=== PATIENT | female | born 1955 | race Caucasian/White ===

== ENCOUNTER 2017-05-30 18:00 | Emergency (ER) | payer OTHER ==
[~2017-05-30] VITALS: Ht 180.3 cm; Wt 92.5 kg
[2017-05-30] MEDS ORDERED: Omeprazole20 M1 PO (18:18)
[2017-05-30] MEDS ORDERED: RYTHMOL PO (18:19)
[2017-05-30] MEDS ORDERED: IBUP600 PO (19:39)
== END 2017-05-30 19:44 | disposition home or self-care (01) ==
LOC: ER 18:00
DX: S02.2XXA Fracture of nasal bones, initial encounter for closed fracture (principal); S01.21XA Laceration without foreign body of nose, initial encounter; Z88.5 Allergy status to narcotic agent; W10.9XXA Fall (on) (from) unspecified stairs and steps, initial encounter
CPT/HCPCS: 12011; 70486; 90471; 90714; 99284

== ENCOUNTER → 2018-05-29 | Outpatient (CLI) | payer OTHER ==
[~2018-05-29] MED LIST: IBUP600 PO; Omeprazole20 M1 PO; RYTHMOL PO
== END | disposition home or self-care (01) ==
LOC: LAB SHORT 12:46 → PLD 12:46
DX: R93.89 Abnormal findings on diagnostic imaging of other specified body structures (principal)
CPT/HCPCS: 88305

== ENCOUNTER 2018-07-12 06:05 | Day surgery (SDC) | payer OTHER ==
[~2018-07-12] VITALS: Ht 177.8 cm; Wt 91.2 kg
[~2018-07-12 06:05] MED LIST changes: +ALLER-TEC PO; +ASPI81CH PO; +CALCIUM PO; +CHOL10002 PO; +CITA20 PO; +Estrace Vagin42.5 GM VAG; +FISH OIL PO; +FLAX SEED OIL1000 MG PO; +Lipitor20 MG PO; +MAGNESIUM PO; +MILK THISTLE PO; +OMEPRAZOLE20 MG PO; +PROPAFENONE HC PO; +TRAZ50 PO
--- NOTE | 2018-07-12 06:35 | NUR ---
Ambulatory in Day Surgery History, Chart, Medications and Allergies reviewed before start of procedure. Lungs clear T/O to Auscultation. Pre-Op teaching done. Pt verbalizes understanding.
--- NOTE | 2018-07-12 18:34 | NUR ---
PT HAS BEEN STABLE THIS SHIFT. UP TO AMBULATE HALLWAYS OFTEN. PAIN MANAGED WITH 1/2 NORCO PRN. PT VINCENT DRAINING WELL, GREEN/BLUE URINE, TO BE DC'D IN THE AM ALONG WITH VAGINAL PACKING. PT HAS HAD SMALL AMT KIMBERLY BLEEDING. IV INFILTRATED THIS EVENING, PT REQUEST TO NOT HAVE RESTART. ENCOURAGING PO FLUIDS, PT HAS BEEN DRINKING VERY WELL AND KERRIE REG DIET. STERI STRIPS WITH SMALL AMT OOZING IN UMBILICAL INCISION. MULTIPLE FAMILY MEMBERS IN ROOM TO VISIT PATIENT. USES CALL LIGHT APPROPRIATELY NEEDED.
--- NOTE | 2018-07-12 21:45 | NUR ---
AMBULATED IN HALLWAYS WITH SPOUSE, TOELRATED WELL. STATES THAT SHE IS READY FOR HER SLEEPING PILL. TRAZADONE PROVIDED PER MD ORDERS. SAFETY MEASURES IN PLACE. WILL CONTINUNE TO MONITOR.
--- NOTE | 2018-07-13 04:00 | NUR ---
VINCENT CATH AND VAGINAL PACKING REMOVED PER MD ORDER. PERICARE PERFORMED AFTER, TOLERATED WELL. DENIES FURTHER NEEDS AT THIS TIME. SAFETY MEASURES IN PLACE. WILL CONTINUE TO MONITOR.
[2018-07-13 04:47] LABS: BASOPHILS ABSOLUTE AUTO 0.02 K/mm3 (0.00-0.23); BASOPHILS PERCENT AUTO 0 % (0-2); EOSINOPHILS ABSOLUTE AUTO 0.15 K/mm3 (0.00-0.68); EOSINOPHILS PERCENT AUTO 1 % (0-6); Hemoglobin 11.5 g/dL (11.5-16.0); IMMATURE GRAN ABSOLUTE AUTO 0.06 K/mm3 (0.00-0.10); IMMATURE GRAN PERCENT AUTO 1 % (0-1); LYMPHOCYTES ABSOLUTE AUTO 1.69 K/mm3 (0.84-5.20); LYMPHOCYTES PERCENT AUTO 13 % (21-46); MONOCYTES ABSOLUTE AUTO 0.72 K/mm3 (0.16-1.47); MONOCYTES PERCENT AUTO 6 % (4-13); Mean Corpuscular HGB Conc 31.9 g/dL (31.5-36.5); Mean Corpuscular Volume 94 fL (80-100); Mean Platelet Volume 9.7 fL (9.1-12.4); NEUTROPHILS ABSOLUTE AUTO 9.99 K/mm3 (1.96-9.15); NEUTROPHILS PERCENT AUTO 79 % (41-73); Platelet Count 272 K/mm3 (150-400); RDW Coefficient Variation 13.3 % (11.7-14.2); RDW Standard Deviation 45.4 fL (35.1-46.3); Red Blood Cell Count 3.83 M/mm3 (3.80-5.20); White Blood Cell Count 12.63 K/mm3 (4.00-11.30)
--- NOTE | 2018-07-13 06:25 | NUR ---
LYING IN SEMI FOWLERS WITH EYES OPEN WHILE WATCHING TV AND PLAYING ON [employer]. NO FURTHER CHANGES SINCE START OF SHIFT. SAFETY MEASURES IN PLACE. WILL GIVE HAND OFF TO ONCOMING SHIFT USING SBAR.
[2018-07-13] MEDS ORDERED: Norco 5-325 Ta1 EACH PO (10:15)
[2018-07-13] MEDS ORDERED: IBUP800 PO (10:16)
--- NOTE | 2018-07-13 10:39 | NUR ---
DISCHARGE PT EDUCATED ON AND RECEIVED PRINTED DC INSTRUCTIONS. PT VERB AN UNDERSTANDING. HARD RX FOR VOCODIN GIVEN TO PT. ALL PERSONAL BELONGINGS SENT HOME WITH PT. PT VOIDING SPONTANEOUSLY. IV DC'D. PT AMBULATED OUT WITH AT SIDE. PT DISCHARGED HOME.
== END 2018-07-13 10:38 | disposition home or self-care (01) ==
LOC: ORSCMMR 06:05 → ORD 07:30 → ORSCMMR 12:17 → SURS 12:17 → ORSCMMR 07-13 10:38
PROVIDERS: Obstetrics & Gynecology
PROC: 0UT2FZZ Resection of Bilateral Ovaries, Via Natural or Artificial Opening With Percutaneous Endoscopic Assistance (ICD-10-PCS; principal; 2018-07-12 07:30)
PROC: 0JQC0ZZ Repair Pelvic Region Subcutaneous Tissue and Fascia, Open Approach (ICD-10-PCS; principal; 2018-07-12 07:30)
PROC: 0UT7FZZ Resection of Bilateral Fallopian Tubes, Via Natural or Artificial Opening With Percutaneous Endoscopic Assistance (ICD-10-PCS; principal; 2018-07-12 07:30)
PROC: 0UT9FZZ Resection of Uterus, Via Natural or Artificial Opening With Percutaneous Endoscopic Assistance (ICD-10-PCS; principal; 2018-07-12 07:30)
DX: N95.0 Postmenopausal bleeding (principal); D25.9 Leiomyoma of uterus, unspecified; D27.1 Benign neoplasm of left ovary; D27.0 Benign neoplasm of right ovary; N81.10 Cystocele, unspecified; I48.91 Unspecified atrial fibrillation; Z79.899 Other long term (current) drug therapy
CPT/HCPCS: 36415; 85025; 88307; A9270-GY; J0461; J0690; J1100; J1885; J2250; J2405; J2704; J2710; J3010; J7120; Q9968

== ENCOUNTER 2021-09-09 09:17 | Emergency (ER) | payer OTHER ==
[~2021-09-09] VITALS: Ht 180.3 cm; Wt 90.7 kg
[~2021-09-09 09:17] MED LIST changes: +IBUP800 PO; +Norco 5-325 Ta1 EACH PO
[2021-09-09] MEDS ORDERED: CEPH500 PO (10:35)
== END 2021-09-09 11:04 | disposition home or self-care (01) ==
LOC: ER 09:17
DX: L03.116 Cellulitis of left lower limb (principal); L03.115 Cellulitis of right lower limb; J44.9 Chronic obstructive pulmonary disease, unspecified; Z87.891 Personal history of nicotine dependence; Z88.5 Allergy status to narcotic agent; Z79.899 Other long term (current) drug therapy; Z79.82 Long term (current) use of aspirin; Z98.890 Other specified postprocedural states
CPT/HCPCS: 99283

== ENCOUNTER 2021-09-11 08:55 | Emergency (ER) | payer OTHER ==
[~2021-09-11] VITALS: Ht 180.3 cm; Wt 89.8 kg
[~2021-09-11 08:55] MED LIST changes: +CEPH500 PO
[2021-09-11] MEDS ORDERED: Prednisone20 MG PO (10:39)
== END 2021-09-11 11:02 | disposition home or self-care (01) ==
LOC: ER 08:55
DX: T50.905A Adverse effect of unspecified drugs, medicaments and biological substances, initial encounter (principal); R05.3 Chronic cough; J44.9 Chronic obstructive pulmonary disease, unspecified; Z98.890 Other specified postprocedural states; Z87.891 Personal history of nicotine dependence; Z88.5 Allergy status to narcotic agent; Z79.899 Other long term (current) drug therapy; Z79.82 Long term (current) use of aspirin; Y92.9 Unspecified place or not applicable
CPT/HCPCS: A9270; J7512

== ENCOUNTER 2021-09-17 10:06 | Emergency (ER) | payer OTHER ==
[~2021-09-17] VITALS: Ht 180.3 cm; Wt 89.8 kg
[~2021-09-17 10:06] MED LIST changes: +Prednisone20 MG PO
[2021-09-17] MEDS ORDERED: Prednisone20 MG PO (10:45)
== END 2021-09-17 11:20 | disposition home or self-care (01) ==
LOC: ER 10:06
DX: L50.9 Urticaria, unspecified (principal); J44.9 Chronic obstructive pulmonary disease, unspecified; Z88.5 Allergy status to narcotic agent; Z91.09 Other allergy status, other than to drugs and biological substances; Z79.899 Other long term (current) drug therapy; Z79.82 Long term (current) use of aspirin; Z87.891 Personal history of nicotine dependence
CPT/HCPCS: 99283

== ENCOUNTER 2022-03-14 21:53 | Observation (INO) | payer OTHER ==
[~2022-03-14] VITALS: Ht 180.3 cm; Wt 87.1 kg
[~2022-03-14 21:53] MED LIST changes: +OMEP20ER PO; -OMEPRAZOLE20 MG PO
[2022-03-14 23:09] LABS: Influenza A, PCR NEGATIVE (NEGATIVE); Influenza B, PCR NEGATIVE (NEGATIVE); SARS-Cov-2 (COVID-19) PCR, MMC NEGATIVE (NEGATIVE)
[2022-03-14 23:52] LABS: Resp Syncytial Virus, PCR POSITIVE (NEGATIVE)
[2022-03-15 00:15] LABS: BASOPHILS ABSOLUTE AUTO 0.06 K/mm3 (0.00-0.23); BASOPHILS PERCENT AUTO 1 % (0-2); EOSINOPHILS ABSOLUTE AUTO 0.26 K/mm3 (0.00-0.68); EOSINOPHILS PERCENT AUTO 3 % (0-6); Hematocrit 38.6 % (33.0-51.0); Hemoglobin 12.9 g/dL (11.5-16.0); IMMATURE GRAN ABSOLUTE AUTO 0.04 K/mm3 (0.00-0.10); IMMATURE GRAN PERCENT AUTO 0 % (0-1); LYMPHOCYTES ABSOLUTE AUTO 0.89 K/mm3 (0.84-5.20); LYMPHOCYTES PERCENT AUTO 10 % (21-46); MONOCYTES ABSOLUTE AUTO 1.02 K/mm3 (0.16-1.47); MONOCYTES PERCENT AUTO 11 % (4-13); Mean Corpuscular HGB 30.1 pg (26.0-34.0); Mean Corpuscular HGB Conc 33.4 g/dL (31.5-36.5); Mean Corpuscular Volume 90 fL (80-100); Mean Platelet Volume 9.7 fL (9.1-12.4); NEUTROPHILS ABSOLUTE AUTO 6.97 K/mm3 (1.96-9.15); NEUTROPHILS PERCENT AUTO 76 % (41-73); Platelet Count 252 K/mm3 (150-400); RDW Coefficient Variation 13.2 % (11.7-14.2); RDW Standard Deviation 43.8 fL (35.1-46.3); Red Blood Cell Count 4.28 M/mm3 (3.80-5.20); White Blood Cell Count 9.24 K/mm3 (4.00-11.30)
[2022-03-15 00:33] LABS: Albumin, Blood 3.5 g/dL (3.4-5.0); Albumin/Globulin Ratio 0.9 (0.8-1.8); Bilirubin, Total 0.4 mg/dL (0.1-1.0); Bun/Creatinine Ratio 15.7 (12.0-20.0); Calcium, Blood 8.5 mg/dL (8.5-10.1); Creatinine, Blood 1.08 mg/dL (0.40-1.00); Globulin, Blood 4.1 g/dL (2.2-4.0); Potassium, Blood 3.5 mmol/L (3.5-5.5); Total Protein, Blood 7.6 g/dL (6.4-8.2)
[2022-03-15] MEDS ORDERED: BENADRYL25 MG PO (03:57)
[2022-03-15] MEDS ORDERED: MONT10T PO (03:58)
[2022-03-15 04:27] LABS: BASOPHILS ABSOLUTE AUTO 0.04 K/mm3 (0.00-0.23); BASOPHILS PERCENT AUTO 0 % (0-2); EOSINOPHILS ABSOLUTE AUTO 0.02 K/mm3 (0.00-0.68); EOSINOPHILS PERCENT AUTO 0 % (0-6); Hematocrit 38.7 % (33.0-51.0); IMMATURE GRAN ABSOLUTE AUTO 0.04 K/mm3 (0.00-0.10); IMMATURE GRAN PERCENT AUTO 0 % (0-1); LYMPHOCYTES ABSOLUTE AUTO 0.42 K/mm3 (0.84-5.20); LYMPHOCYTES PERCENT AUTO 4 % (21-46); MONOCYTES ABSOLUTE AUTO 0.12 K/mm3 (0.16-1.47); MONOCYTES PERCENT AUTO 1 % (4-13); Mean Corpuscular HGB Conc 33.6 g/dL (31.5-36.5); Mean Corpuscular Volume 89 fL (80-100); Mean Platelet Volume 9.9 fL (9.1-12.4); NEUTROPHILS ABSOLUTE AUTO 8.84 K/mm3 (1.96-9.15); NEUTROPHILS PERCENT AUTO 93 % (41-73); Platelet Count 256 K/mm3 (150-400); RDW Coefficient Variation 13.3 % (11.7-14.2); RDW Standard Deviation 43.5 fL (35.1-46.3); Red Blood Cell Count 4.33 M/mm3 (3.80-5.20); White Blood Cell Count 9.48 K/mm3 (4.00-11.30)
[2022-03-15 04:50] LABS: Albumin, Blood 3.5 g/dL (3.4-5.0); Albumin/Globulin Ratio 0.8 (0.8-1.8); Bilirubin, Total 0.5 mg/dL (0.1-1.0); Calcium, Blood 8.9 mg/dL (8.5-10.1); Creatinine, Blood 0.94 mg/dL (0.40-1.00); Globulin, Blood 4.4 g/dL (2.2-4.0); Potassium, Blood 3.7 mmol/L (3.5-5.5); Total Protein, Blood 7.9 g/dL (6.4-8.2)
--- NOTE | 2022-03-15 05:15 | NUR ---
SHIFT SUMMARY: PT IS ALERT AND ORIENTED. PT IS CALM AND COOPERATIVE WITH CARE. PT CALLS APPROPRIATELY. PT IS INDEPENDENT TO THE BATHROOM. PT REPORTS SOB ON EXERTION, SATS > 90% ON ROOM AIR. PT DENIES PAIN, NAUSEA, AND VOMITING. NO ACUTE CHANGES OR COMPLICATIONS SINCE ADMIT. BED IN LOW POSITION, CALL LIGHT WITHIN REACH, WILL CONTINUE TO MONITOR.
[2022-03-15] MEDS ORDERED: BENZ100A PO (11:25)
[2022-03-15] MEDS ORDERED: Deltasone 10 mg10 MG PO (11:27)
[2022-03-15] MEDS ORDERED: ONDA4 PO (11:27)
[2022-03-15] MEDS ORDERED: Amoxicillin500 MG PO (14:25)
--- NOTE | 2022-03-15 14:51 | NUR ---
DISCHARGE NOTE PT DISCHARGED TO HOME WITH HER DAUGHTER, TAKEN DOWN TO THEIR VEHICLE BY WHEELCHAIR. IV REMOVED SUCCESSFULLY. EDUCATION AND INSTRUCTIONS PROVIDED AND MEDICATIONS FAXED TO THE PHARMACY OF THEIR CHOICE. PERSONAL POSESSIONS ALSO RETURNED TO THE PT.
== END 2022-03-15 14:51 | disposition home or self-care (01) ==
LOC: ER 21:53 → MEDS 21:54
PROVIDERS: Family Medicine; Physician Assistant; Student in an Organized Health Care Education/Training Program; ADMIT Family Medicine
DX: J44.1 Chronic obstructive pulmonary disease with (acute) exacerbation (principal); J44.0 Chronic obstructive pulmonary disease with (acute) lower respiratory infection; J21.0 Acute bronchiolitis due to respiratory syncytial virus; I48.91 Unspecified atrial fibrillation; R73.9 Hyperglycemia, unspecified; Z88.5 Allergy status to narcotic agent; Z20.822 Contact with and (suspected) exposure to COVID-19
CPT/HCPCS: 0241U; 36415; 71045; 80053; 83880; 84484; 85025; 93005; 93010; 94644; 94664; 94761; 96374; 96376; 99285-25; A9270; G0378; J2930

== ENCOUNTER → 2023-07-14 | Outpatient (CLI) | payer OTHER ==
[~2023-07-14] MED LIST changes: +AZIT250 PO; +Amoxicillin500 MG PO; +BENADRYL25 MG PO; +BENZ100A PO; +Deltasone 10 mg10 MG PO; +MONT10T PO; +ONDA4 PO; +PRED20 PO
[2023-07-14 11:49] LABS: Alanine Aminotransfer (ALT/SGP 32 U/L (12-78); Albumin, Blood 3.4 g/dL (3.4-5.0); Albumin/Globulin Ratio 0.9 (0.8-1.8); Alk Phos 79 U/L (50-136); Anion Gap 8 mmol/L (3-11); Aspartate Aminotrans (AST/SGOT 14 U/L (12-37); Bilirubin, Total 0.5 mg/dL (0.1-1.0); Blood Urea Nitrogen 18 mg/dL (8-24); Bun/Creatinine Ratio 20.3 (12.0-20.0); CHOL/HDL RATIO 2.7; CO2, Blood 28 mmol/L (21-32); Calcium, Blood 8.8 mg/dL (8.5-10.1); Chloride, Blood 107 mmol/L (98-108); Cholesterol 134 mg/dL (50-200); Creatinine, Blood 0.89 mg/dL (0.40-1.00); Globulin, Blood 3.9 g/dL (2.2-4.0); Glomerular Filtration Rate 71 (60-); Glucose, Blood 103 mg/dL (70-99); HDL Cholesterol 49 mg/dL (>39); LDL/HDL RATIO 1.4; Low Density Lipoprotein Chol 67 mg/dL (0-110); Magnesium, Blood 2.1 mg/dL (1.6-2.4); Potassium, Blood 4.1 mmol/L (3.5-5.5); Sodium, Blood 139 mmol/L (136-145); Total Protein, Blood 7.3 g/dL (6.4-8.2); Triglycerides 91 mg/dL (30-160); Very Low Density Lipoprot Chol 18 mg/dL (6-32)
== END | disposition home or self-care (01) ==
LOC: LAB SHORT 10:55 → LAB 10:55
PROVIDERS: Family Medicine
DX: E78.2 Mixed hyperlipidemia (principal); Z85.528 Personal history of other malignant neoplasm of kidney; Z91.89 Other specified personal risk factors, not elsewhere classified
CPT/HCPCS: 80053; 80061; 83735